=== PATIENT | female | born 1975 | race Caucasian/White ===

== ENCOUNTER 2018-03-12 13:18 | Outpatient (CLI) | payer OTHER ==
--- NOTE | 2018-03-12 15:38 | MMO ---
BILATERAL SCREENING MAMMOGRAM: Date: 03/12/18 HISTORY: Screening. COMPARISON: None. TECHNIQUE: Bilateral screening CC and MLO mammograms. This patient's mammogram was interpreted with the assistance of computer-aided detection. FINDINGS: There are scattered fibroglandular densities. No suspicious mass, architectural distortion, or microc alcifications. IMPRESSION: BIRADS 2: Benign Finding(s) Continued annual mammographic screening is recommended. POS: SH[facility]
== END 2018-03-12 13:19 | disposition home or self-care (01) ==
LOC: SCSMAMMO 13:18
PROVIDERS: ATTEND Family Medicine
DX: Z12.31 Encounter for screening mammogram for malignant neoplasm of breast (principal)
CPT/HCPCS: 77067

== ENCOUNTER 2019-05-23 09:58 | Outpatient (CLI) | payer OTHER ==
--- NOTE | 2019-05-23 10:54 | MMO ---
Bilateral MAMMO Bilat Diag [facility]+ADEEL. CLINICAL HISTORY: Patient is 44 years old and is seen for diagnostic exam and pain in the right breast. The patient has no family history of breast cancer. The patient has no personal history of cancer. VIEWS: The views performed were: bilateral craniocaudal with tomosynthesis; bilateral mediolateral oblique with tomosynthesis; and bilateral mediolateral with tomosynthesis. FILMS COMPARED: The present examination has been compared to prior imaging studies performed at [facility] on 03/12/2018, and at [facility] on 05/23/2019. This study has been interpreted with the assistance of computer-aided detection. MAMMOGRAM FINDINGS: There are scattered fibroglandular densities. There are no suspicious masses, suspicious calcifications, or new areas of architectural distortion. There are no mammographic or sonographic abnormalities in the area of palpable concern and patient pain. The patient is referred back to her clinician. Negative imaging findings should not preclude biopsy if clinical findings are suspicious. IMPRESSION: THERE ARE NO MAMMOGRAPHIC ABNORMALITIES IN THE AREA OF PALPABLE CONCERN AND PATIENT PAIN. THE PATIENT IS REFERRED BACK TO HER CLINICIAN. NEGATIVE IMAGING FINDINGS SHOULD NOT PRECLUDE BIOPSY IF CLINICAL FINDINGS ARE SUSPICIOUS. THE RESULTS OF THIS EXAM WERE SENT TO THE PATIENT. ACR BI-RADS Category 1 - Negative MAMMOGRAPHY NOTE: 1. A negative mammogram report should not delay a biopsy if a dominant of clinically suspicious mass is present. 2. Approximately 10% to 15% of breast cancers are not detected by mammography. 3. Adenosis and dense breasts may obscure an underlying neoplasm. Reported by: FLORIAN DAVIS MD Electonically Signed: [id number]
--- NOTE | 2019-05-23 12:47 | ULT ---
LIMITED RIGHT BREAST ULTRASOUND: Date: 05/23/19 PROVIDED CLINICAL HISTORY: Right breast pain and palpable abnormality. FINDINGS: Limited sonographic interrogation was performed of the right breast at the 3 o'clock position in the region of patient pain. Sonographic interrogation of the retroareolar region in the region of patient pain was also performed. The sonographic appearance of the breast tissue in these regions is normal. IMPRESSION: BI-RADS Category 1 - Negative. Negative imaging findings should not preclude further evaluation of a clinically suspicious abnormality. The patient is referred back to her clinician. POS: OFF
== END 2019-05-23 09:59 | disposition home or self-care (01) ==
LOC: BICMAMMO 09:58
PROVIDERS: ATTEND Family Medicine
DX: N64.4 Mastodynia (principal)
CPT/HCPCS: 77066; G0279